=== PATIENT | female | born 1965 | race Caucasian/White ===

== ENCOUNTER → 2016-12-22 07:58 | Emergency (ER) | payer BC ==
[~2016-12-22 07:58] MED LIST: Acetaminophen TAB* 325 MG PO ONE; Cyclobenzaprine TAB* 10 MG PO ONE
--- NOTE | 2016-12-22 09:30 | ED ---
Back Pain - HPI Summary HPI Summary: Pt here w/ acute Lt lumbar pain since Friday - worse today. She was doing a hyperextension pose in a hot yoga class and felt an acute pain in her Lt lower back - didn't think much of it and continued through the remaining 70 min of class w/o difficulty. Reports when she went from the hot room (105F) to the cool locker room after, her back ceased up here. She has had difficulty with bending at the waist since. Feels best in neutral spine position (standing or lying). Denies radiating sx into her buttocks or legs - tightness wraps around her back on Lt. Has tried heat, ice, ibuprofen 600mg and had a massage yesterday. She was having difficulty moving this morning and so came in for evaluation. Denies numbness, tingling, weakness, incontinence of her bowels/ bladder and no previous back injuries. She practices hot yoga 3 x week and admits she was not aware she should be replacing her electrolytes after classes. - History of Current Complaint Chief Complaint: EDBackInjuryPain Stated Complaint: BACK PAIN Time Seen by Provider: 12/22/16 08:47 Hx Obtained From: Patient - Allergies/Home Medications Allergies/Adverse Reactions: Allergies Allergy/AdvReac Type Severity Reaction Status Date / Time No Known Allergies Allergy Verified 11/11/16 15:39 PMH/Surg Hx/FS Hx/Imm Hx Previously Healthy: Yes Endocrine/Hematology History: Reports: Hx Thyroid Disease - HYPO Denies: Hx Diabetes Cardiovascular History: Denies: Hx Hypertension, Hx Pacemaker/ICD Respiratory History: Denies: Hx Asthma, Hx Chronic Obstructive Pulmonary Disease (COPD) GI History: Denies: Hx Ulcer History: Denies: Hx Renal Disease Musculoskeletal History: Denies: Hx Arthritis, Hx Back Problems Sensory History: Denies: Hx Hearing Aid Psychiatric History: Denies: Hx Panic Disorder - Cancer History Hx Chemotherapy: No Hx Radiation Therapy: No - Surgical History Surgery Procedure, Year, and Place: C SECTION x 2. TUBAL LIGATION - 1997 Infectious Disease History: No Infectious Disease History: Denies: Hx Clostridium Difficile, Hx Hepatitis, Hx Human Immunodeficiency Virus (HIV), Hx of Known/Suspected MRSA, Hx Shingles, Hx Tuberculosis, Hx Known/ Suspected VRE, Hx Known/Suspected VRSA, History Other Infectious Disease, Traveled Outside the [place] in Last 30 Days - Social History Occupation: Employed Full-time Lives: Alone Alcohol Use: Occasionally Hx Substance Use: No Substance Use Type: Reports: None Hx Tobacco Use: No Smoking Status (MU): Never Smoked Tobacco Review of Systems Negative: Fever, Chills Negative: Chest Pain Negative: Shortness Of Breath Negative: Abdominal Pain, Vomiting, Diarrhea, Nausea Negative: burning, dysuria, discharge, frequency, hematuria, incontinence Musculoskeletal: Other - see HPI Skin: Negative Neurological: Negative Psychological: Normal - concerned All Other Systems Reviewed And Are Negative: Yes Physical Exam Triage Information Reviewed: Yes Vital Signs On Initial Exam: Initial Vitals Temp Pulse Resp BP Pulse Ox 97.4 F 61 14 134/76 98 12/22/16 08:03 12/22/16 08:03 12/22/16 08:03 12/22/16 08:03 12/22/16 08:03 Vital Signs Reviewed: Yes Appearance: Positive: Well-Appearing, No Pain Distress - while lying supine in neutral spine position on stretcher, Well-Nourished Skin: Positive: Warm, Dry Head/Face: Positive: Normal Head/Face Inspection Eyes: Positive: Normal, EOMI, Conjunctiva Clear ENT: Positive: Hearing grossly normal, Pharynx normal - mucosa moist Neck: Positive: Supple Respiratory/Lung Sounds: Positive: Breath Sounds Present Cardiovascular: Positive: Normal, RRR, Pulses are Symmetrical in both Upper and Lower Extremities Abdomen Description: Positive: Nontender, Soft Bowel Sounds: Positive: Present Musculoskeletal: Positive: Strength/ROM Intact, Pain @ - Lt QL muscle and SI joint are TTP - lumbar spinous pp NTTP; Rt QL/SI is NTTP; LE's and hips are NTTP ; limited lumbar ROM d/t pain; (-) SLR Neurological: Positive: Normal, Sensory/Motor Intact, Alert, Oriented to Person Place, Time, CN Intact II-III Psychiatric: Positive: Normal - concerned Diagnostics - Vital Signs Vital Signs Temp Pulse Resp BP Pulse Ox 12/22/16 08:30 65 128/86 97 12/22/16 08:07 60 98 12/22/16 08:06 134/76 12/22/16 08:05 97.4 F 61 14 134/76 98 12/22/16 08:03 97.4 F 61 14 134/76 98 - Laboratory Lab Statement: Any lab studies that have been ordered have been reviewed, and results considered in the medical decision making process. Re-Evaluation - Re-Evaluation First Eval Change: Improved - able to ambulate to bathroom Back Pain Course/Dx - Diagnoses Provider Diagnoses: Lumbar strain Discharge - Discharge Plan Condition: Stable Disposition: HOME Prescriptions: Cyclobenzaprine TAB* [Flexeril 10 MG TAB*] 10 mg PO TID PRN #15 tab PRN Reason: Pain Patient Education Materials: Low Back Strain (ED) Forms: *Work Release Referrals: Edmond Reid MD [Primary Care Provider] - Additional Instructions: You appear to have a muscle strain/spasm. This may be treated with rest, ice alternating with heat, ibuprofen alternating with acetaminophen and flexeril. Hydrate and avoid diuretics (ie. caffeine, alcohol, cranberry juice, etc). Follow-up with PCP tomorrow - may benefit from physical therapy. *If you develop lower extremity weakness and/or incontinence of bowels/bladder, return to ED
[2016-12-22 10:17] VITALS: BP 122/83
== END | disposition home or self-care (01) ==
LOC: ED 07:58
DX: S39.012A Strain of muscle, fascia and tendon of lower back, initial encounter (principal); X50.0XXA Overexertion from strenuous movement or load, initial encounter; Y93.42 Activity, yoga; Y92.9 Unspecified place or not applicable
CPT/HCPCS: 99282; A9270-GY

== ENCOUNTER 2018-02-01 20:11 | Emergency (ER) | payer BC ==
[2018-02-01 20:24] VITALS: BP 123/90
--- NOTE | 2018-02-01 20:50 | UC ---
Throat Pain/Nasal [place] HPI - HPI Summary HPI Summary: Feeling "run-down" with ST and occasional cough for about a month. Does have seasonal allergies, but feels they haven't been bad this year. Concerned about recurrent sores on the inside of her bottom lip. Had TSH checked recently, it was fine. Also has ulcerative colitis but feels that hasn't been active in the last year or more. - History of Current Complaint Chief Complaint: UCRespiratory Stated Complaint: SORE THROAT AND SORES IN MOUTH Time Seen by Provider: 02/01/18 20:21 Hx Obtained From: Patient ?: No Onset/Duration: Gradual Onset, Lasting Weeks Severity: Mild Pain Intensity: 3 Cough: None Associated Signs & Symptoms: Negative: FB Sensation, Drooling, Fever, Vomiting Related History: Seasonal Allergies - Allergies/Home Medications Allergies/Adverse Reactions: Allergies Allergy/AdvReac Type Severity Reaction Status Date / Time No Known Allergies Allergy Verified 02/01/18 20:25 Home Medications: Home Medications Fluconazole 150 MG (NF) [Diflucan 150 mg (NF)] 150 mg PO DAILY 02/01/18 [ History Confirmed 02/01/18] PMH/Surg Hx/FS Hx/Imm Hx Endocrine History: Thyroid Disease Cardiovascular History: Hypertension Other GI/ History: ulcerative colitis - Surgical History Surgical History: Yes Surgery Procedure, Year, and Place: C SECTION x 2. TUBAL LIGATION - 1997 - Family History Known Family History: Positive: Hypertension - Social History Occupation: Employed Full-time Alcohol Use: Occasionally Substance Use Type: None Smoking Status (MU): Former Smoker Review of Systems Constitutional: Fatigue Skin: Negative Eyes: Negative ENT: Sore Throat, Nasal Discharge Respiratory: Negative Cardiovascular: Negative Gastrointestinal: Negative Genitourinary: Negative Motor: Negative Neurovascular: Negative Musculoskeletal: Negative Neurological: Negative Psychological: Negative Is Patient Immunocompromised?: No All Other Systems Reviewed And Are Negative: Yes Physical Exam Triage Information Reviewed: Yes Appearance: Well-Appearing, No Pain Distress, Well-Nourished Vital Signs: Initial Vital Signs Temp 97.9 F 02/01/18 20:17 Pulse 75 02/01/18 20:17 Resp 18 02/01/18 20:17 BP 123/90 02/01/18 20:17 Pulse Ox 96 02/01/18 20:17 Vital Signs Reviewed: Yes Eye Exam: Normal Eyes: Positive: Conjunctiva Clear ENT: Positive: Normal ENT inspection, Hearing grossly normal, Pharynx normal, Other - 2 small mucoceles, intact, noted on L lower inner lip Dental Exam: Normal Neck exam: Normal Neck: Positive: Supple, Nontender, No Lymphadenopathy Respiratory Exam: Normal Respiratory: Positive: Chest non-tender, Lungs clear, Normal breath sounds, No respiratory distress Cardiovascular Exam: Normal Cardiovascular: Positive: RRR, No Murmur Musculoskeletal Exam: Normal Neurological Exam: Normal Neurological: Positive: Alert Psychological Exam: Normal Skin Exam: Normal Throat Pain/Nasal Course/Dx - Differential Dx/Diagnosis Provider Diagnoses: fatigue. seasonal allergies. mucoceles in mouth Discharge - Sign-Out/Discharge Documenting (check all that apply): Discharge/Admit/Transfer - Discharge Plan Condition: Stable Disposition: HOME Patient Education Materials: Fatigue (ED), Allergic Rhinitis (ED) Referrals: Edmond Reid MD [Primary Care Provider] - 1 Week Additional Instructions: As we discussed, it can be very difficult to pin down a medical cause of ongoing fatigue and unwellness. Your sore throat is most likely from either allergies or GERD (gastroesophageal reflux); either of these can be treated quite well with [id number] medications. I recommend you try a nasal steroid spray, such as flonase or nasocort, combined with a daily antihistamine such as zyrtec or loratadine. If your symptoms do not resolve, you should definitely follow up with your primary care provider. The bumps in your mouth are not true ulcers or sores -- they are called mucoceles and are quite benign (though annoying). - Billing Disposition and Condition Condition: STABLE Disposition: Home
[2018-02-02 11:09] LABS: ABS Basophils 0 10^3/ul (0-0.2); ABS Eosinophils 0 10^3/ul (0-0.6); ABS Lymphocytes 2.3 10^3/ul (1.0-4.8); ABS Monocytes 0.4 10^3/ul (0-0.8); ABS Neutrophils 3.5 10^3/ul (1.5-7.7); ABS Nucleated RBC 0 10^3/ul; Eosinophil % 0 % (0-6); Hematocrit 40 % (35-47); Mean Corpuscular HGB Conc 35 g/dl (31-36); Mean Corpuscular Hemoglobin 32 pg (27-31); Mean Corpuscular Volume 92 fL (80-97); Mean Platelet Volume 9.3 um3 (7.4-10.4); Nucleated Red Blood Cells % 0.1; Platelet Count 271 10^3/ul (150-450); Red Blood Count 4.36 10^6/ul (4.00-5.40); Red Cell Distribution Width 13 % (10.5-15); White Blood Count 6.2 10^3/ul (3.5-10.8)
== END 2018-02-01 21:01 | disposition home or self-care (01) ==
LOC: UCEAST 20:11
DX: R53.83 Other fatigue (principal); J30.2 Other seasonal allergic rhinitis; K13.79 Other lesions of oral mucosa; E07.9 Disorder of thyroid, unspecified; I10 Essential (primary) hypertension; K51.90 Ulcerative colitis, unspecified, without complications; Z82.49 Family history of ischemic heart disease and other diseases of the circulatory system
CPT/HCPCS: 36415; 85025; 86703; 99211; G0463

== ENCOUNTER 2018-12-19 17:58 | Emergency (ER) | payer BC ==
--- NOTE | 2018-12-19 18:03 | UC ---
Skin Complaint HPI - HPI Summary HPI Summary: 53 yo female presents with ?insect bite to anterior neck. She tells me that she was walking in the [place] earlier today and about 30min [place] [employer]US[place] [employer]ER noticed a dark spot on her neck. She took tweezers and was "digging" at it, but was unable to remove anything. She states that she is concerned it is a tick. No pain to the area. Did not see any insect/bug attached to neck. - History of Current Complaint Time Seen by Provider: 12/19/18 18:01 Stated Complaint: TICK BITE Hx Obtained From: Patient Onset/Duration: Sudden Onset Current Severity: None - Allergy/Home Medications Allergies/Adverse Reactions: Allergies Allergy/AdvReac Type Severity Reaction Status Date / Time No Known Allergies Allergy Verified 12/19/18 18:05 Home Medications: Home Medications Atorvastatin* [Lipitor 10 MG*] 12/19/18 [History] PMH/Surg Hx/FS Hx/Imm Hx - Additional Past Medical History Additional PMH: Ulcerative colitis Endocrine History: Hypothyroidism - Surgical History Surgical History: Yes Surgery Procedure, Year, and Place: C SECTION x 2. TUBAL LIGATION - 1997 - Family History Known Family History: Positive: Hypertension - Social History Lives: With Family Alcohol Use: Occasionally Substance Use Type: None Smoking Status (MU): Former Smoker Review of Systems All Other Systems Reviewed And Are Negative: Yes Constitutional: Positive: Negative Skin: Positive: Other - ?insect bite neck Respiratory: Positive: Negative Cardiovascular: Positive: Negative Neurovascular: Positive: Negative Neurological: Positive: Negative Psychological: Positive: Negative Physical Exam - Summary Physical Exam Summary: GENERAL: NAD. WDWN. No pain distress. SKIN: Neck: Right anterior soft tissue neck with 1mm superficial skin loss. NTTP. No edema, warmth, or insect particles observed. No tick. CHEST: No accessory muscle use. Breathing comfortably and in no distress. CV: Pulses intact. Cap refill <2seconds NEURO: Alert. PSYCH: Age appropriate behavior. Triage Information Reviewed: Yes Vital Signs: Vital Signs: Temp Pulse Resp BP Pulse Ox 97.5 F 68 16 122/81 96 12/19/18 18:02 12/19/18 18:02 12/19/18 18:02 12/19/18 18:02 12/19/18 18:02 Vital Signs Reviewed: Yes Course/Dx - Course Course Of Treatment: I am unsure what caused this area to her neck, it could have been an insect bite - but it appears most like she may have scratched herself in this area. Reassured pt that this is not consistent with a typical tick bite/behavior and advised to monitor the area for any worsening symptoms and to be rechecked if she develops these. - Diagnoses Provider Diagnosis: Abrasion of neck Discharge - Sign-Out/Discharge Documenting (check all that apply): Patient Departure All imaging exams completed and their final reports reviewed: No Studies - Discharge Plan Condition: Stable Disposition: HOME Referrals: Edmond Reid MD [Primary Care Provider] - Additional Instructions: If you develop a fever, shortness of breath, chest pain, new or worsening symptoms - please call your PCP or go to the ED immediately. The area to your neck does not appear to be from a tick bite. Please monitor the area for any pain, swelling, drainage, or redness - if you notice these over the next few days - please be rechecked by your primary doctor - Billing Disposition and Condition Condition: STABLE Disposition: Home
[2018-12-19 18:06] VITALS: BP 122/81
== END 2018-12-19 18:23 | disposition home or self-care (01) ==
LOC: UCEAST 17:58
DX: S10.91XA Abrasion of unspecified part of neck, initial encounter (principal); X58.XXXA Exposure to other specified factors, initial encounter; Y93.01 Activity, walking, marching and hiking; Y92.821 Forest as the place of occurrence of the external cause; E03.9 Hypothyroidism, unspecified; Z87.891 Personal history of nicotine dependence
CPT/HCPCS: 99211; G0463